=== PATIENT | female | born 1950 | race Caucasian/White ===

== ENCOUNTER 2021-11-27 21:37 | Emergency (ER) | payer OTHER ==
[~2021-11-27] VITALS: Ht 162.6 cm; Wt 63.5 kg
--- NOTE | 2021-11-27 21:45 | NUR ---
REFFERED FROM AN URGENT CARE FOR EVALUATION OF L TEMPORAL HEADACHE X 1 DAY. -N/V, -DIZZINESS. PATIENT ALERT AND ORIENTEDX3. AMBULATORY WITH NON LABORED BREATHING IN BED 09 ON MONITOR AND POX AWAITING MD CRISOSTOMO.
[2021-11-27 22:40] LABS: BASOPHILS # (AUTO) 0.1 K/uL (0.0-0.2); BASOPHILS % (AUTO) 0.8 % (0.0-2.0); EOSINOPHILS % (AUTO) 0.5 % (0.0-6.0); HEMATOCRIT 42 % (33-45); HEMOGLOBIN 14.2 g/dL (11.5-14.8); LYMPHOCYTES # (AUTO) 1.8 K/uL (0.8-4.8); LYMPHOCYTES % (AUTO) 20.2 % (20.0-44.0); MEAN CORPUSCULAR HGB CONC 34 g/dl (31.0-36.0); MEAN CORPUSCULAR VOLUME 94 fL (82-100); MONOCYTES # (AUTO) 0.4 K/uL (0.1-1.30); MONOCYTES % (AUTO) 4.9 % (2.0-12.0); NEUTROPHILS # (AUTO) 6.6 K/uL (1.8-8.9); NEUTROPHILS % (AUTO) 73.6 % (43.0-81.0); PLATELET COUNT (AUTO) 321 K/uL (150-450); RED BLOOD CELL COUNT(AUTO) 4.48 MIL/uL (4.0-5.2)
[2021-11-27 23:01] LABS: CALCIUM, SERUM 8.8 mg/dL (8.5-10.1); CARBON DIOXIDE 26 mmol/L (21-32); CHLORIDE 103 mmol/L (98-107); CREATININE 0.8 mg/dL (0.6-1.3); GLUCOSE 96 mg/dL (74-106); POTASSIUM 4.4 mmol/L (3.5-5.1); SODIUM SERUM 138 mmol/L (136-145); UREA NITROGEN, BLOOD 17 mg/dL (7-18)
--- NOTE | 2021-11-27 23:41 | NUR ---
CALLED [facility] FOR READ
--- NOTE | 2021-11-28 00:07 | NUR ---
Patient discharged to home in stable condition. Written and verbal after care instructions given. Patient verbalizes understanding of instruction.
[2021-11-28 00:08] VITALS: BP 151/91
== END 2021-11-28 00:24 | disposition home or self-care (01) ==
LOC: ER 21:42
DX: R51.9 Headache, unspecified (principal); I10 Essential (primary) hypertension; F17.200 Nicotine dependence, unspecified, uncomplicated; Z86.69 Personal history of other diseases of the nervous system and sense organs
CPT/HCPCS: 36415; 70450-TC; 80048-TC; 85025-TC; 85652-TC